=== PATIENT | female | born 1995 ===

== ENCOUNTER 2018-08-16 08:16 | Inpatient (IN) | payer OTHER ==
[~2018-08-16] VITALS: Ht 165.1 cm; Wt 68.0 kg
== END 2018-08-17 11:30 | disposition home or self-care (01) | DRG 343 ==
LOC: ER 08:16 → SURH 19:14 → SEC-K 19:14 → O/R 20:07 → SURH 23:33
PROVIDERS: ADMIT Surgery
PROC: BW21ZZZ Computerized Tomography (CT Scan) of Abdomen and Pelvis (ICD-10-PCS; 2018-08-16)
PROC: 0DTJ4ZZ Resection of Appendix, Percutaneous Endoscopic Approach (ICD-10-PCS; principal; 2018-08-16 19:00)
DX: K35.890 Other acute appendicitis without perforation or gangrene (principal)